=== PATIENT | female | born 1965 | race Hispanic/Latino ===

== ENCOUNTER 2018-02-21 10:39 | Emergency (ER) | payer OTHER ==
--- NOTE | 2018-02-21 11:40 | XRay Report ---
Chest 2 views: History: Shortness of breath. Findings: Normal cardiomediastinal silhouette. Trachea is midline. No consolidation, pneumothorax or pleural effusion. Impression: No acute cardiopulmonary findings.
[2018-02-21 12:02] LABS: Basophils # (Auto) 0.1 K/mm3 (0.0-0.1); Basophils % (Auto) 1.6 % (0.0-1.8); Eosinophils # (Auto) 0.1 K/mm3 (0.0-0.4); Hematocrit 40.7 % (30.3-42.9); Hemoglobin 13.5 gm/dl (10.1-14.3); Lymphocytes # (Auto) 3.8 K/mm3 (1.2-5.4); Lymphocytes % (Auto) 47.7 % (13.4-35.0); Mean Corpuscular HGB Conc 33 % (30-34); Mean Corpuscular Hemoglobin 31 pg (28-32); Mean Corpuscular Volume 94 fl (79-97); Monocytes # (Auto) 0.6 K/mm3 (0.0-0.8); Monocytes % (Auto) 6.9 % (0.0-7.3); Platelet Count 234 K/mm3 (140-440); Red Blood Count 4.34 M/mm3 (3.65-5.03); Red Cell Distribution Width 13.7 % (13.2-15.2)
[2018-02-21 12:18] LABS: BUN/Creatinine Ratio 20; Blood Urea Nitrogen 14 mg/dL (7-17); Calcium 9.9 mg/dL (8.4-10.2); Hemolysis Index 9
[2018-02-21] MEDS ORDERED: TORADOL IV ONE (13:58)
--- NOTE | 2018-02-21 13:58 | Emergency Department Report ---
ED General Adult HPI - General Chief complaint: Dyspnea/Respdistress Stated complaint: LOWER BACK PAIN, HEART BEATING FAST, NUMB IN HANDS Time Seen by Provider: 02/21/18 13:43 Source: patient, RN notes reviewed Mode of arrival: Ambulatory Limitations: No Limitations - History of Present Illness Initial comments: This is a 53-year-old female who is unknown to this provider. She reports that she is not and does not have a local primary care doctor. She denies chronic medical conditions, thinks that she may have a history of hypertension but is not certain. Patient presents to the ER with a complaint of nontraumatic right paralumbar back pain and bilateral sacroiliac joint, sharp and achy in nature, does not radiate anywhere, on and off for months. She also complains of nontraumatic right forearm pain and charley horse, and intermittent shoulder and trapezius pain, which has been present for months. She denies headache, neck pain, chest pain, abdominal pain, shortness of breath , palpitations. She denies extremity weakness, numbness, ataxia, and also denies DVT, pulmonary embolus risk factors. -: Gradual, week(s), month(s) Location: neck, back, left, right, upper extremity Radiation: non-radiation Quality: aching Consistency: intermittent Improves with: none Worsens with: none Associated Symptoms: denies: confusion, chest pain, cough, diaphoresis, fever/ chills, headaches, loss of appetite, malaise, nausea/vomiting, rash, seizure, shortness of breath, syncope, weakness - Related Data Previous Rx's Medication Instructions Recorded Last Taken Type HYDROcodone/APAP 5-325 [[place] 1 each PO Q4HR PRN #20 tablet 04/15/15 Unknown Rx 5/325] Acetaminophen [Tylenol Arthritis] 650 mg PO Q6HR PRN #30 tablet.er 02/21/18 Unknown Rx Ibuprofen [Motrin] 600 mg PO Q8H PRN #30 tablet 02/21/18 Unknown Rx Allergies Allergy/AdvReac Type Severity Reaction Status Date / Time No Known Allergies Allergy Unverified 04/15/15 13:15 ED Review of Systems ROS: Stated complaint: LOWER BACK PAIN, HEART BEATING FAST, NUMB IN HANDS Other details as noted in HPI Constitutional: denies: fever, malaise, weakness Eyes: denies: vision change Respiratory: denies: shortness of breath Cardiovascular: denies: chest pain, palpitations Gastrointestinal: denies: abdominal pain Genitourinary: denies: dysuria Musculoskeletal: arthralgia, myalgia Skin: denies: lesions Neurological: denies: headache Psychiatric: denies: anxiety ED Past Medical Hx - Past Medical History Hx Hypertension: Yes - Surgical History Hx Appendectomy: Yes - Social History Smoking Status: Current Every Day Smoker Substance Use Type: Alcohol - Medications Home Medications: Home Medications Medication Instructions Recorded Confirmed Last Taken Type HYDROcodone/APAP 5-325 [[place] 1 each PO Q4HR PRN #20 tablet 04/15/15 Unknown Rx 5/325] Acetaminophen [Tylenol Arthritis] 650 mg PO Q6HR PRN #30 tablet.er 02/21/18 Unknown Rx Ibuprofen [Motrin] 600 mg PO Q8H PRN #30 tablet 02/21/18 Unknown Rx ED Physical Exam - General Limitations: No Limitations General appearance: alert, in no apparent distress - Head Head exam: Present: atraumatic, normocephalic - Eye Eye exam: Present: normal appearance, EOMI. Absent: nystagmus - ENT ENT exam: Present: normal exam, normal orophraynx, mucous membranes moist, normal external ear exam - Neck Neck exam: Present: normal inspection, full ROM - Respiratory Respiratory exam: Present: normal lung sounds bilaterally. Absent: respiratory distress - Cardiovascular Cardiovascular Exam: Present: normal rhythm, bradycardia, normal heart sounds. Absent: systolic murmur, diastolic murmur, rubs, gallop - GI/Abdominal GI/Abdominal exam: Present: soft, normal bowel sounds. Absent: distended, tenderness, guarding, rebound, rigid, pulsatile mass - Extremities Exam Extremities exam: Present: normal inspection, full ROM, normal capillary refill , other (2+ pulses noted in the bilateral upper, lower extremities. Compartments soft. No long bony tenderness. The pelvis is stable.). Absent: pedal edema, joint swelling, calf tenderness - Back Exam Back exam: Present: normal inspection, full ROM, paraspinal tenderness. Absent : tenderness, CVA tenderness (R), vertebral tenderness - Neurological Exam Neurological exam: Present: alert, oriented X3, CN II-XII intact, normal gait, other (Extraocular movements intact. Tongue midline. No facial droop. Facial sensation intact to light touch in the V1, V2, V3 distribution bilaterally. 5 and 5 strength in 4 extremities.. Sensation is intact to light touch in 4 extremities.). Absent: motor sensory deficit - Psychiatric Psychiatric exam: Present: normal affect, normal mood - Skin Skin exam: Present: warm, dry, intact, normal color. Absent: rash ED Course Vital Signs 02/21/18 02/21/18 02/21/18 10:47 13:11 13:16 Temperature 97.8 F Pulse Rate 58 L 59 L 75 Respiratory 18 20 18 Rate Blood Pressure 130/83 O2 Sat by Pulse 97 100 99 Oximetry 02/21/18 13:30 Temperature Pulse Rate 57 L Respiratory 18 Rate Blood Pressure 138/69 O2 Sat by Pulse 98 Oximetry - Reevaluation(s) Reevaluation #1: 02/21/18 14:41 Differential diagnosis, including but not limited to: Sacroiliitis, polyarthritis, myalgias, resolved charley horse Assessment and plan: 53-year-old female complains of sacroiliac pain, intermittent and chronic, bilateral shoulder and trapezius pain, reproducible, right forearm pain and "charley horse" now resolved, with no evidence of DVT, cellulitis, and no obvious of neurovascular compromise. She is afebrile with reassuring vital signs and has soft compartments. To me, she makes no complaint of chest pain, shortness of breath or palpitations. She has no DVT or pulmonary embolus risk factors and is low risk by well's criteria. A troponin sent prior to my evaluation, and based on her clinical history and exam , patient is low risk by heart score, SHIRA score, and low risk for major adverse cardiac event. She is given ketorolac for her pain which is improved her symptoms, and she can follow up with an outpatient primary care doctor for her nonspecific arthralgias. ED Medical Decision Making - Lab Data Result diagrams: 02/21/18 11:39 02/21/18 11:39 Vital Signs 02/21/18 02/21/18 02/21/18 10:47 13:11 13:16 Temperature 97.8 F Pulse Rate 58 L 59 L 75 Respiratory 18 20 18 Rate Blood Pressure 130/83 O2 Sat by Pulse 97 100 99 Oximetry 02/21/18 13:30 Temperature Pulse Rate 57 L Respiratory 18 Rate Blood Pressure 138/69 O2 Sat by Pulse 98 Oximetry Lab Results 02/21/18 02/21/18 Range/Units 11:39 11:39 WBC 8.0 (4.5-11.0) K/mm3 RBC 4.34 (3.65-5.03) M/mm3 Hgb 13.5 (10.1-14.3) gm/dl Hct 40.7 (30.3-42.9) % MCV 94 (79-97) fl MCH 31 (28-32) pg MCHC 33 (30-34) % RDW 13.7 (13.2-15.2) % Plt Count 234 (140-440) K/mm3 Lymph % (Auto) 47.7 H (13.4-35.0) % Jay % (Auto) 6.9 (0.0-7.3) % Eos % (Auto) 1.0 (0.0-4.3) % Baso % (Auto) 1.6 (0.0-1.8) % Lymph # 3.8 (1.2-5.4) K/mm3 Jay # 0.6 (0.0-0.8) K/mm3 Eos # 0.1 (0.0-0.4) K/mm3 Baso # 0.1 (0.0-0.1) K/mm3 Seg Neutrophils % 42.8 (40.0-70.0) % Seg Neutrophils # 3.4 (1.8-7.7) K/mm3 Sodium 141 (137-145) mmol/L Potassium 5.3 H (3.6-5.0) mmol/L Chloride 105.3 (98-107) mmol/L Carbon Dioxide 22 (22-30) mmol/L Anion Gap 19 mmol/L BUN 14 (7-17) mg/dL Creatinine 0.7 (0.7-1.2) mg/dL Estimated GFR > 60 ml/min BUN/Creatinine Ratio 20 % Glucose 88 (65-100) mg/dL Calcium 9.9 (8.4-10.2) mg/dL Troponin T < 0.010 (0.00-0.029) ng/mL - EKG Data -: EKG Interpreted by Pr EKG shows normal: sinus rhythm - EKG Data 02/21/18 14:43 Sinus bradycardia, 53 bpm, normal axis, normal intervals, high left ventricular voltage, not a STEMI Critical care attestation.: If time is entered above; I have spent that time in minutes in the direct care of this critically ill patient, excluding procedure time. ED Disposition Clinical Impression: Arthralgia of multiple sites Disposition: DC-01 TO HOME OR SELFCARE Is pt being admited?: No Does the pt Need Aspirin: No Condition: Good Instructions: Sacroiliitis (ED) Additional Instructions: Rest, and avoid heavy lifting. Avoid strenuous physical activity. The pain medication as directed. Follow-up with her primary care doctor within the next month. Return to the ER right away with new pain, worsened pain, migration of pain, fevers, chills, lethargy, irritability, projectile vomiting, change in mental status, confusion, inability to tolerate liquid feeds. Referrals: PRIMARY CAREMD [Primary Care Provider] - 3-5 Days [facility] [Provider Group] - 3-5 Days
[2018-02-21] MEDS ORDERED: KIONEX PO ONE (14:38)
[2018-02-21 15:15] VITALS: BP 156/76
== END 2018-02-21 15:16 | disposition home or self-care (01) ==
LOC: ED 10:39
DX: M54.5 Low back pain (principal); M25.511 Pain in right shoulder; M25.512 Pain in left shoulder; M79.631 Pain in right forearm; I10 Essential (primary) hypertension; F17.200 Nicotine dependence, unspecified, uncomplicated; Z90.49 Acquired absence of other specified parts of digestive tract
CPT/HCPCS: 36415; 71046; 80048; 84484; 85025; 93005; 93010; 96372; 99284; J1885; 96374

== ENCOUNTER 2018-05-25 10:35 | Emergency (ER) | payer OTHER ==
[2018-05-25] MEDS ORDERED: DECADRON IM ONE (11:57)
[2018-05-25] MEDS ORDERED: TORADOL IM ONE (11:57)
--- NOTE | 2018-05-25 12:03 | Emergency Department Report ---
ED Back Pain/Injury HPI - General Chief Complaint: Back Pain/Injury Stated Complaint: BODY PAIN Time Seen by Provider: 05/25/18 11:09 Source: patient Limitations: No Limitations - History of Present Illness Initial Comments: This is a 53-year-old -English female presents with chronic low back pain and increased pain 4 days. Patient states she was seen here for 5 months ago and given ibuprofen which did not help her symptoms. She admits to history of muscle spasms and hypertension. She reports pain is worse while working or movement. 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 She reports pain currently is 10 out of 10 on pain scale and nonradiating. There is a dull achy sensation. Patient states there is some tingling at times to fingertips. Patient also complains of facial swelling with sinus pressure and congestion. Patient states she woke up with these symptoms this morning. She has not tried taking anything over-the- counter. Patient states swelling has improved around eyes but congestion and headache frontal region remains. Patient denies fever, shortness of breath, cough, nausea or vomiting, or abdominal pain. MD Complaint: back pain Onset/Timin -: days(s) Similar Symptoms Previously: Yes Place: work Radiation: none Severity: severe Severity scale (0 -10): 10 Quality: dull, aching Consistency: constant Improves With: none Worsens With: movement, walking Context: bending Associated Symptoms: headaches - Related Data Previous Rx's Medication Instructions Recorded Last Taken Type HYDROcodone/APAP 5-325 [[place] 1 each PO Q4HR PRN #20 tablet 04/15/15 Unknown Rx 5/325] Acetaminophen [Tylenol Arthritis] 650 mg PO Q6HR PRN #30 tablet.er 02/21/18 Unknown Rx Ibuprofen [Motrin] 600 mg PO Q8H PRN #30 tablet 02/21/18 Unknown Rx Amoxicillin/Potassium Clav 1 each PO BID #10 tablet 05/25/18 Unknown Rx [Augmentin 875-125 Tablet] Fluticasone [Flonase] 1 spray NS QDAY #1 bottle 05/25/18 Unknown Rx Naproxen [Naprosyn] 500 mg PO TID #15 tablet 05/25/18 Unknown Rx tiZANidine [Zanaflex] 4 mg PO TID PRN #10 tablet 05/25/18 Unknown Rx Allergies Allergy/AdvReac Type Severity Reaction Status Date / Time No Known Allergies Allergy Verified 05/25/18 10:38 ED Review of Systems ROS: Stated complaint: BODY PAIN Other details as noted in HPI Constitutional: denies: chills, fever ENT: congestion. denies: ear pain, throat pain Respiratory: denies: cough, shortness of breath, wheezing Cardiovascular: denies: chest pain, palpitations Gastrointestinal: denies: abdominal pain, nausea, diarrhea Musculoskeletal: back pain (low back pain). denies: joint swelling, arthralgia Skin: denies: rash, lesions Neurological: headache. denies: weakness, paresthesias Psychiatric: denies: anxiety, depression ED Back Pain Physical Exam - Exam General: Vital signs noted. No distress. Alert and acting appropriately. Back/Abdomen: Yes Sacroiliac Tenderness (bilaterally, no erythema or swelling, limited range of motion secondary to pain), No Abdominal Tenderness, No Perithoracic Tenderness, No Perilumbar Tenderness, No Flank Tenderness, No Straight Leg Raise Pain Neuro: Yes Normal Sensation, Yes Normal DTR's, Yes Normal Gait, No Motor Weakness ED Course Vital Signs 05/25/18 10:38 Temperature 97.9 F Pulse Rate 52 L Respiratory 18 Rate Blood Pressure 164/64 O2 Sat by Pulse 100 Oximetry ED Medical Decision Making - Medical Decision Making Patient was examined by me. Vitals are normal and patient is in no acute distress. Given toradol and dexamethasone once while in ER. Start ibuprofen and cyclobenzaprine for pain. Plan discussed with patient to discharge home and treat outpatient. He agrees with ER plan. Patient discharged home in stable condition. Follow up with PCP in 2-3 days. Critical care attestation.: If time is entered above; I have spent that time in minutes in the direct care of this critically ill patient, excluding procedure time. ED Disposition Clinical Impression: Strain of muscle, fascia and tendon of lower back, initial encounter Chronic low back pain Qualifiers: Back pain laterality: bilateral Sciatica presence: without sciatica Qualified Code(s): M54.5 - Low back pain Sinusitis, acute frontal Qualifiers: Recurrence: non-recurrent Qualified Code(s): J01.10 - Acute frontal sinusitis, unspecified Disposition: TO HOME OR SELFCARE Is pt being admited?: No Does the pt Need Aspirin: No Condition: Stable Instructions: Muscle Strain (ED), Sinusitis (ED), Chronic Back Pain (ED) Additional Instructions: Use warm moist compresses over sinuses. Use ibuprofen or Tylenol for pain. Use nasal saline spray. Avoid taking antihistamines. Rest, Use ice or heat on affected area for 20 minutes and off for 2 hours. Take pain medication as needed for pain. Don't drive or operate heavy machinery while taking muscle relaxers because they may cause drowsiness. Follow up with Primary Care Provider in 2-3 days. Prescriptions: Amoxicillin/Potassium Clav [Augmentin 875-125 Tablet] 1 each PO BID #10 tablet Fluticasone [Flonase] 1 spray NS QDAY #1 bottle Naproxen [Naprosyn] 500 mg PO TID #15 tablet tiZANidine [Zanaflex] 4 mg PO TID PRN #10 tablet PRN Reason: Muscle Spasm Referrals: SHREE SEYMOUR MD [Staff Physician] - 3-5 Days [facility] [Outside] - 3-5 Days [facility]Outside] - 3-5 Days [facility] [Provider Group] - 3-5 Days Time of Disposition: 12:24 ED URI EXAM - General General appearance: alert, in no apparent distress Limitations: No Limitations - ENT ENT Exam: Positive: Normal Orophraynx (erythematous posterior pharynx, uvula midline), Mucus Membrane Moist, Normal External Ear Exam, Pain on Percussion of Sin (frontal), Nasal Mucosal Erythema/Swelling. Negative: Purulent Nasal Discharge, TM Erythema/Dullness, Trismus, Tonsillar Exudates, Oral Lesions/ Ulcers, Dental Tenderness, Gingival Swelling, Pus at Osteomeatal Opening - Respiratory Respiratory exam: Positive: normal lung sounds bilaterally. Negative: respiratory distress, wheezes, rales, rhonchi, stridor, chest wall tenderness, accessory muscle use, decreased breath sounds, prolonged expiratory - Cardiovascular Cardiovascular Exam: Positive: regular rate, normal rhythm Peripheral pulses: 2+: Radial (R) - GI/Abdominal GI/Abdominal exam: Positive: soft, normal bowel sounds. Negative: distended, tenderness, guarding, rebound, rigid, organomegaly, mass - Neurological Neurological exam: Positive: alert, oriented X3 - Psychiatric Psychiatric exam: Positive: normal affect, normal mood - Skin Skin exam: Positive: warm, dry, intact, normal color. Negative: rash
[2018-05-25 12:38] VITALS: BP 158/70
== END 2018-05-25 12:37 | disposition home or self-care (01) ==
LOC: ED 10:35
DX: S39.012A Strain of muscle, fascia and tendon of lower back, initial encounter (principal); G89.29 Other chronic pain; Y92.69 Other specified industrial and construction area as the place of occurrence of the external cause; J01.10 Acute frontal sinusitis, unspecified; X50.1XXA Overexertion from prolonged static or awkward postures, initial encounter; Y93.89 Activity, other specified; Y99.0 Civilian activity done for income or pay
CPT/HCPCS: 96372; 99282; J1100; J1885

== ENCOUNTER 2019-10-29 22:13 | Emergency (ER) | payer SELFPAY ==
--- NOTE | 2019-10-29 22:17 | Emergency Department Report ---
Blank Doc - Documentation Documentation: 54-year-old female that presents with right shoulder pain s/o fall. This initial assessment/diagnostic orders/clinical plan/treatment(s) is/are subject to change based on patient's health status, clinical progression and re- assessment by fellow clinical providers in the ED. Further treatment and workup at subsequent clinical providers discretion. Patient/guardians urged not to elope from the ED as their condition may be serious if not clinically assessed and managed. Initial orders include: 1- Patient sent to [facility] for further evaluation and treatment 2- xrays
[2019-10-29 22:19] VITALS: BP 156/77
--- NOTE | 2019-10-29 23:08 | XRay Report ---
RIGHT SHOULDER 3 VIEWS INDICATION / CLINICAL INFORMATION: shoulder pain. COMPARISON: None available. FINDINGS: No significant skeletal abnormality Signer Name: Darrell Aragon MD FACR Signed: 10/29/2019 11:03 PM Workstation Name: [id number]
--- NOTE | 2019-10-29 23:39 | Emergency Department Report ---
ED Upper Extremity Inj HPI - General Chief Complaint: Extremity Injury, Upper Stated Complaint: RT SHOULDER INJURY Time Seen by Provider: 10/29/19 22:16 Source: patient Mode of arrival: Ambulatory Limitations: No Limitations - History of Present Illness Initial Comments: pt is a 54-year-old female presents emergency room with complaints of a fall that occurred yesterday while she was playing kickball. She states that she fell directly onto her right shoulder. She denies ever injuring in the past. She denies any numbness or weakness. She denies any other injury. She denies any past medical history or allergies to medications. She states that she went through menopause. - Related Data Previous Rx's Medication Instructions Recorded Last Taken Type HYDROcodone/APAP 5-325 [[place] 1 each PO Q4HR PRN #20 tablet 04/15/15 Unknown Rx 5/325] Acetaminophen [Tylenol Arthritis] 650 mg PO Q6HR PRN #30 tablet.er 02/21/18 Unknown Rx Ibuprofen [Motrin] 600 mg PO Q8H PRN #30 tablet 02/21/18 Unknown Rx Amoxicillin/Potassium Clav 1 each PO BID #10 tablet 05/25/18 Unknown Rx [Augmentin 875-125 Tablet] Fluticasone [Flonase] 1 spray NS QDAY #1 bottle 05/25/18 Unknown Rx Naproxen [Naprosyn] 500 mg PO TID #15 tablet 05/25/18 Unknown Rx tiZANidine [Zanaflex 4mg TAB] 4 mg PO TID PRN #10 tablet 05/25/18 Unknown Rx Naproxen [EC-Naprosyn] 500 mg PO BID PRN #20 tablet. 10/29/19 Unknown Rx methOCARBAMOL [Robaxin TAB] 500 mg PO QHS PRN #10 tablet 10/29/19 Unknown Rx Allergies Allergy/AdvReac Type Severity Reaction Status Date / Time No Known Allergies Allergy Verified 05/25/18 10:38 ED Review of Systems ROS: Stated complaint: RT SHOULDER INJURY Other details as noted in HPI Comment: All other systems reviewed and negative ED Past Medical Hx - Past Medical History Previous Medical History?: Yes Hx Hypertension: Yes - Surgical History Hx Appendectomy: Yes Additional Surgical History: rhinoplasty - Social History Smoking Status: Current Every Day Smoker Substance Use Type: Alcohol - Medications Home Medications: Home Medications Medication Instructions Recorded Confirmed Last Taken Type HYDROcodone/APAP 5-325 [[place] 1 each PO Q4HR PRN #20 tablet 04/15/15 Unknown Rx 5/325] Acetaminophen [Tylenol Arthritis] 650 mg PO Q6HR PRN #30 tablet.er 02/21/18 Unknown Rx Ibuprofen [Motrin] 600 mg PO Q8H PRN #30 tablet 02/21/18 Unknown Rx Amoxicillin/Potassium Clav 1 each PO BID #10 tablet 05/25/18 Unknown Rx [Augmentin 875-125 Tablet] Fluticasone [Flonase] 1 spray NS QDAY #1 bottle 05/25/18 Unknown Rx Naproxen [Naprosyn] 500 mg PO TID #15 tablet 05/25/18 Unknown Rx tiZANidine [Zanaflex 4mg TAB] 4 mg PO TID PRN #10 tablet 05/25/18 Unknown Rx Naproxen [EC-Naprosyn] 500 mg PO BID PRN #20 tablet. 10/29/19 Unknown Rx methOCARBAMOL [Robaxin TAB] 500 mg PO QHS PRN #10 tablet 10/29/19 Unknown Rx ED Physical Exam - General Limitations: No Limitations General appearance: alert, in no apparent distress - Head Head exam: Present: atraumatic, normocephalic - Eye Eye exam: Present: normal appearance - ENT ENT exam: Present: mucous membranes moist - Respiratory Respiratory exam: Present: normal lung sounds bilaterally. Absent: respiratory distress, wheezes, rales, rhonchi, stridor, chest wall tenderness, accessory muscle use, decreased breath sounds, prolonged expiratory - Cardiovascular Cardiovascular Exam: Present: regular rate, normal rhythm, normal heart sounds. Absent: systolic murmur, diastolic murmur, rubs, gallop - Extremities Exam Extremities exam: Present: other (hematoma present to the right anterior shoulder overlying the right anterior trapezius muscle, no bony ttp of the right shoulder, no AC joint ttp, no sulcus sign, FROM of the right shoulder with discomfort upon full flexion, no obvious deformity, no joint laxity, no clavicular ttp, clavicles are equal, neurovascularly intact) - Neurological Exam Neurological exam: Present: alert, oriented X3 - Psychiatric Psychiatric exam: Present: normal affect, normal mood - Skin Skin exam: Present: warm, dry, intact ED Course Vital Signs 10/29/19 22:16 Temperature 98 F Pulse Rate 74 Respiratory 18 Rate Blood Pressure 156/77 O2 Sat by Pulse 99 Oximetry ED Medical Decision Making - Radiology Data Radiology results: report reviewed X-ray right shoulder Dictated by Darrell Aragon MD No significant skeletal abnormality - Medical Decision Making pt is a 54-year-old female presents emergency room with complaints of a fall that occurred yesterday while she was playing kickball. She states that she fell directly onto her right shoulder. She denies ever injuring in the past. She denies any numbness or weakness. She denies any other injury. She denies any past medical history or allergies to medications. She states that she went through menopause. Vitals are stable. On exam: hematoma present to the right anterior shoulder overlying the right anterior trapezius muscle, no bony ttp of the right shoulder, no AC joint ttp, no sulcus sign, FROM of the right shoulder with discomfort upon full flexion, no obvious deformity, no joint laxity, no clavicular ttp, clavicles are equal, neurovascularly intact. XR right shoulder: No significant skeletal abnormality. Discussed findings with patient. Patient given prescription for naproxen and Robaxin. advised pt Please take medication as prescribed as needed. Do not drive or operate heavy machinery while taking muscle relaxer. May use ice pack, heating pad, rest, Epson salt bath. Follow- up with an orthopedic doctor. Follow-up with a primary care doctor. Return to the emergency room for any new or worsening symptoms. - Differential Diagnosis strain, sprain, fx, dislocation, contusion, hematoma Critical care attestation.: If time is entered above; I have spent that time in minutes in the direct care of this critically ill patient, excluding procedure time. ED Disposition Clinical Impression: Right shoulder injury Qualifiers: Encounter type: initial encounter Qualified Code(s): S49.91XA - Unspecified injury of right shoulder and upper arm, initial encounter Traumatic hematoma of right shoulder Qualifiers: Encounter type: initial encounter Qualified Code(s): S40.011A - Contusion of right shoulder, initial encounter Disposition: - TO HOME OR SELFCARE Is pt being admited?: No Does the pt Need Aspirin: No Condition: Stable Instructions: Shoulder Sprain (ED) Additional Instructions: Please take medication as prescribed as needed. Do not drive or operate heavy machinery while taking muscle relaxer. May use ice pack, heating pad, rest, Epson salt bath. Follow-up with an orthopedic doctor. Follow-up with a primary care doctor. Return to the emergency room for any new or worsening symptoms. Prescriptions: methOCARBAMOL [Robaxin TAB] 500 mg PO QHS PRN #10 tablet PRN Reason: Muscle Spasm Naproxen [EC-Naprosyn] 500 mg PO BID PRN #20 tablet.dr [place] Reason: pain Referrals: SHREE SEYMOUR MD [Staff Physician] - 3-5 Days [facility] [Provider Group] - 3-5 Days CONCEPCION OCHOA MD [Staff Physician] - 3-5 Days [facility] [Outside] - 3-5 Days Time of Disposition: 23:38 Print Language: WOLOF
== END 2019-10-30 00:21 | disposition home or self-care (01) ==
LOC: ED 22:13
DX: S40.011A Contusion of right shoulder, initial encounter (principal); I10 Essential (primary) hypertension; F17.200 Nicotine dependence, unspecified, uncomplicated; Z79.899 Other long term (current) drug therapy; Z98.890 Other specified postprocedural states; W19.XXXA Unspecified fall, initial encounter; Y93.6A Activity, physical games generally associated with school recess, summer camp and children; Y92.89 Other specified places as the place of occurrence of the external cause; Y99.8 Other external cause status